=== PATIENT | male | born 1980 | race African-American/Black ===

== ENCOUNTER 2017-02-25 14:27 | Emergency (ER) | payer SELFPAY ==
[~2017-02-25] VITALS: Ht 180.3 cm; Wt 78.0 kg
[2017-02-25 14:28] VITALS: BP 112/65; PULSE 64; RESP 20; TEMP 98.5; O2SAT 99
--- NOTE | 2017-02-25 14:33 | PD ---
Physical Exam Time Seen by Provider: 14:31 Narrative 36yo M c/o of his "stomach not settling" x a few days. Denies abd pain. + diarrhea. +N w/o vomiting. Subjective fever. Patient seen in triage. VS reviewed. Awaiting bed placement. Data Data Last Documented VS Vital Signs Date Time Temp Pulse Resp B/P Pulse Ox O2 Delivery O2 Flow Rate FiO2 02/25/17 14:28 98.5 64 20 112/65 99 Room Air MDM Supervised Visit with KRYSTLE: No Scripts No Active Prescriptions or Reported Meds Natalya Garcia Feb 25, 2017 14:33
[2017-02-25] MEDS ORDERED: SODIUM CHLOR 0.9% 1000 ML INJ 1,000 ML IV SCH (14:46)
[2017-02-25 14:48] VITALS: O2SAT 97
[2017-02-25] MEDS ORDERED: ZOFR4TAB3 SL (14:59)
[2017-02-25] MEDS ORDERED: SODIUM CHLORIDE 0.9% FLUSH 10 ML FLUSH IV FLUSH PRN (15:00)
[2017-02-25] MEDS ORDERED: ONDANSETRON HCL 4 MG/2 ML VIAL IVP ONE (15:00)
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
[2017-02-25 16:03] VITALS: BP 102/56
== END 2017-02-25 16:23 | disposition home or self-care (01) ==
LOC: NEPD 14:27
DX: R11.0 Nausea (principal); R19.7 Diarrhea, unspecified; R53.83 Other fatigue; R42 Dizziness and giddiness; F17.290 Nicotine dependence, other tobacco product, uncomplicated; Z88.0 Allergy status to penicillin; Z79.899 Other long term (current) drug therapy
CPT/HCPCS: 96361; 96374; 99284; J2405; J7030

== ENCOUNTER 2017-04-29 11:37 | Emergency (ER) | payer SELFPAY ==
[~2017-04-29] VITALS: Ht 180.3 cm; Wt 73.1 kg
[~2017-04-29 11:37] MED LIST: ZOFR4TAB3 SL
[2017-04-29 11:40] VITALS: BP 127/69; PULSE 59; RESP 15; TEMP 98.1; O2SAT 100
[2017-04-29] MEDS ORDERED: IBUP800T23 PO (12:11)
[2017-04-29] MEDS ORDERED: HYDR-3533 PO (12:11)
[2017-04-29] MEDS ORDERED: CLIN1CAP5 PO (12:11)
[2017-04-29] MEDS ORDERED: CLINDAMYCIN 150 MG CAP PO ONE (12:15)
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
== END 2017-04-29 12:33 | disposition home or self-care (01) ==
LOC: PHEFT 11:37
DX: K04.7 Periapical abscess without sinus (principal); Z88.0 Allergy status to penicillin
CPT/HCPCS: 99284

== ENCOUNTER 2017-12-28 22:46 | Emergency (ER) | payer SELFPAY ==
[~2017-12-28 22:46] MED LIST changes: +CLIN150C14 PO; +HYDR-3533 PO; +IBUP1TAB7 PO; -ZOFR4TAB3 SL
[2017-12-29] VITALS: BP 105/54; PULSE 61; RESP 18; TEMP 97.4; O2SAT 100
[2017-12-29] MEDS ORDERED: ZOFR4TAB3 SL (00:41)
--- NOTE | 2017-12-29 00:41 | PD ---
HPI Chief Complaint: GI Complaint Time Seen by Provider: 00:30 Travel History International Travel<30 days: No Contact w/Intl Traveler<30days: No Traveled to known affect area: No History of Present Illness HPI 37yo M with no PMH here requesting a work note. Pt said he was not feeling well earlier today, vomited 1 time and had 3 episodes of nonbloody diarrhea. Denies any abdominal pain, fever, cough, chest pain, sob, dysuria, hematuria, testicular pain, penile rash or discharge, focal weakness or numbness. Pt said he called in sick today and needs a note for work. Pt feels a little nauseous still but much better after drinking water with flour which is a home remedy. PFSH Past Medical History Cardiovascular Problems: Yes (HEART MURMUR) Diminished Hearing: No Immunizations Current: Yes Past Surgical History Appendectomy: Yes (2002) Social History Alcohol Use: Yes (SOCIALLY) Tobacco Use: Yes (occasional cigar) Substance Use: No Allergies-Medications (Allergen,Severity, Reaction): Coded Allergies: penicillin G (Unverified Allergy, Unknown, 12/29/17) Reported Meds & Prescriptions Reported Meds & Active Scripts Active Zofran Odt (Ondansetron Odt) 4 Mg Tab 4 Mg SL Q12HR PRN Clindamycin (Clindamycin HCl) 150 Mg Cap 300 Mg PO Q6H 10 Days Review of Systems Except as stated in HPI: all other systems reviewed are Neg Physical Exam Narrative GENERAL: 37yo M not in distress. SKIN: Focused skin assessment warm/dry. HEAD: Atraumatic. Normocephalic. JVD. CARDIOVASCULAR: Regular rate and rhythm. No murmur appreciated. RESPIRATORY: No accessory muscle use. Clear to auscultation. Breath sounds equal bilaterally. GASTROINTESTINAL: Abdomen soft, non-tender, nondistended. No rebound tenderness or guarding. MUSCULOSKELETAL: No obvious deformities. No clubbing. No cyanosis. No edema. NEUROLOGICAL: Awake and alert. No obvious cranial nerve deficits. Motor grossly within normal limits. Normal speech. PSYCHIATRIC: Appropriate mood and affect; insight and judgment normal. Data Data Last Documented VS Vital Signs Date Time Temp Pulse Resp B/P (MAP) Pulse Ox O2 Delivery O2 Flow Rate FiO2 12/29/17 00:00 97.4 61 18 105/54 (71) 100 Orders Orders Ondansetron Odt (Zofran Odt) (12/29/17 00:45) MDM Medical Decision Making Medical Screen Exam Complete: Yes Emergency Medical Condition: Yes Differential Diagnosis Gastroenteritis vs. viral syndrome vs. routine medical exam Narrative Course 37yo M here requesting work note for yesterday. Pt has no abdominal pain and diarrhea has resolved. No longer vomiting but feels nauseous so given zofran. Pt reevaluated at bedside after medication and feels better. Tolerating PO. Return precautions given. Diagnosis Primary Impression: Nausea Patient Instructions: General Instructions Departure Forms: Tests/Procedures, Work Release Enter return to work date: December 29, 2017 Additional Instructions: Please follow up with your primary care physician in 2-3 days. Return to the ED if symptoms worsen. Med/Other Pt SpecificInfo: Prescription(s) given Scripts Ondansetron Odt (Zofran Odt) 4 Mg Tab 4 MG SL Q12HR Y for Nausea/Vomiting, #6 TAB 0 Refills Prov: Olimpia Sharp DO 12/29/17 Disposition: 01 DISCHARGE HOME Condition: Stable Olimpia Sharp DO December 29, 2017 00:41
[2017-12-29] MEDS ORDERED: ONDANSETRON ODT 4 MG TAB PO ONE (00:45)
== END 2017-12-29 01:18 | disposition home or self-care (01) ==
LOC: NEPD 22:46
DX: R11.0 Nausea (principal); R19.7 Diarrhea, unspecified
CPT/HCPCS: 99281